=== PATIENT | female | born 1965 | race Caucasian/White ===

== ENCOUNTER 2020-07-23 10:57 | Outpatient (REF) | payer OTHER, SELFPAY ==
[2020-07-23 11:32] LABS: COVID-19 Test Negative (Negative)
== END 2020-07-23 10:58 | disposition home or self-care (01) ==
LOC: HO.LAB 10:57
PROVIDERS: Visit Provider Internal Medicine
DX: Z20.828 Contact with and (suspected) exposure to other viral communicable diseases (principal)
CPT/HCPCS: 87635

== ENCOUNTER 2020-12-31 08:32 | Outpatient (REF) | payer OTHER, SELFPAY ==
--- NOTE | 2020-12-31 16:09 | MHC.AU.ANR ---
Adult Audiological Evaluation Date of Visit: 12/31/20 Reason for Appointment: Audiological evaluation due to concern for decreased hearing. Mr. Laguna notes particular difficulties hearing and understanding speech in the presence of background noise. He denies tinnitus and dizziness. Does patient feel they have a hearing loss?: Yes If Yes, Which Ear?: Both Ears When Was Hearing Difficulty First Noticed?: 10 years ago Has hearing been tested previously?: Yes Previous Hearing Test Results: Reports having been previously tested at the [facility], and notes that he was diagnosed with a hearing loss at that time. Results not available to be reviewed. Hearing Handicap Inventory: HHIE SCORE: 28 Based on HHIE score, patient has: Severe perceived hearing handicap History: History: Yes Branch: [employer] Years in : 5 Years Medical History: Medical History: Tobacco Use Medication List: Lipitor 20mg po daily Otoscopy: Right Ear: Unremarkable Left Ear: Unremarkable Tympanometry: Tympanometry performed due to: To assess integrity of the middle ear system Right Ear: Normal Middle Ear System (Type A) Left Ear: Normal Middle Ear System (Type A) Hearing Evaluation: Transducer(s) Used: Insert Earphones, Bone Conduction Method: Conventional Audiometry Stimuli Used: Pure Tones Right Ear: Description of Hearing: Normal hearing from 250-1500 Hz, sloping to a mild to moderately severe sensorineural hearing loss from 0781-5520 Hz. Left Ear: Description of Hearing: Normal hearing from 250-500 Hz, sloping to a mild to moderately severe sensorineural hearing loss from 4816-3697 Hz. Hearing in the left ear is 30 dBHL worse than the right ear at 1500 Hz, and 10 dBHL worse at 1000 and 2000 Hz. Speech Recognition Threshold (SRT): Method Used: Monitored Live Voice Stimuli Used: Spondee Words Right Ear: 20 dBHL Left Ear: 20 dBHL Word Discrimination: Method: Recorded Lists Word Lists Used: NU-6 Right Ear: 88% at 60 dBHL, 96% at 70 dBHL Left Ear: 76% at 70 dBHL, 92% at 70 dBHL Recommendations: Audiological re-evaluation in one year. Trial with amplification is recommended. Referral to Ear, Nose, and Throat is recommended due to asymmetry. Set Mr. Laguna up with a pair of demo Phonak Audeo P hearing aids and scheduled him to return in two weeks for a hearing aid evaluation. Diagnosis: Primary Diagnosis: H90.3 Bilateral Sensorineural Hearing Loss Services Performed: Services Performed: Comprehensive Audiological Evaluation (CPT 13198) Tympanometry (CPT 28185) Signature: Provider: Bhupendra Maldonado, CCC-A
== END 2020-12-31 08:33 | disposition home or self-care (01) ==
LOC: HO.SH 08:32
PROVIDERS: Visit Provider Internal Medicine
DX: H90.3 Sensorineural hearing loss, bilateral (principal)
CPT/HCPCS: 92557; 92567

== ENCOUNTER 2021-01-15 14:58 | Outpatient (REF) | payer SELFPAY ==
--- NOTE | 2021-01-15 16:44 | MHC.AU.HAS ---
Hearing Aid Evaluation Date of Visit: 01/15/21 Historical Information: Description of Hearing: Mild to moderately severe sensorineural hearing loss, worse in the left ear Summary: Patient has been using Phonak Audeo P trial aids for several weeks. He states that he's noticed an improvement in his hearing and finds them beneficial. He has been getting used to them and notices how quiet it is when he doesn't wear them. He is interested in purchasing a similar pair. Hearing Aid Prescription: Based on the individual?s shared listening needs, communication environments, dexterity, desire for connectivity, and personal preferences, the following prescription for amplification has been made: Right ear: Manager Rehab: Phonak Model: Audeo P70-13T Battery Size: 13 Color: P5- Champagne Corporate Events Director: Size 1 M Type of Dome: Medium open Left ear: Left ear prescription to be same as Right Hearing Aid above: Manager Rehab: Phonak Model: Audeo P70-13T Battery Size: 13 Color: P5- Champagne Corporate Events Director: 1 M Type of Dome: Medium open Action Taken/Action Needed: Hearing Fitting to be scheduled when materials arrive. Called Phonak and ordered aids today. Primary Diagnosis: H90.3 Bilateral Sensorineural Hearing Loss Signature: Provider: Bhupendra Maldonado, CCC-A
== END 2021-01-15 14:59 | disposition home or self-care (01) ==
LOC: HO.HAP 14:58
PROVIDERS: Visit Provider Internal Medicine
DX: Z46.1 Encounter for fitting and adjustment of hearing aid (principal); H90.3 Sensorineural hearing loss, bilateral
CPT/HCPCS: 92591

== ENCOUNTER 2021-01-28 13:57 | Outpatient (REF) | payer OTHER, SELFPAY | END 2021-01-28 13:58 | disposition home or self-care (01) | LOC: HO.HAP 13:57 | PROVIDERS: Visit Provider Internal Medicine | DX: H90.3 Sensorineural hearing loss, bilateral (principal) | CPT/HCPCS: V5261 ==

== ENCOUNTER 2022-08-16 14:08 | Outpatient (REF) | payer OTHER, SELFPAY ==
[2022-08-16 15:01] LABS: Influenza A PCR POSITIVE (Negative); Influenza B PCR NEGATIVE (Negative); Resp Syncy Virus RNA Qual PCR NEGATIVE (Negative); SARS COV2 PCR INHOUSE NEGATIVE (Negative)
== END 2022-08-16 14:09 | disposition home or self-care (01) ==
LOC: HO.LNP 14:08
PROVIDERS: Visit Provider Physician Assistant
DX: Z20.822 Contact with and (suspected) exposure to COVID-19 (principal); R09.89 Other specified symptoms and signs involving the circulatory and respiratory systems
CPT/HCPCS: 0241U

== ENCOUNTER 2022-10-03 09:19 | Outpatient (REF) | payer OTHER, SELFPAY ==
--- NOTE | ~2022-10-03 | XR_ITS ---
EXAMINATION: XR CHEST CLINICAL INFORMATION: Pneumonia COMPARISON: None TECHNIQUE: 2 views of the chest were obtained. FINDINGS: Lungs are well-inflated and clear. Trachea is midline in position. No interstitial disease, consolidation or mass. No pleural effusion or pneumothorax. Cardiac silhouette and pulmonary vessels are normal in size. The mediastinum and asaf have normal contour. The visualized bones, and upper abdomen, are unremarkable. XR/XR chest 2V IMPRESSION: No evidence of pneumonia. No acute cardiopulmonary abnormality.
== END 2022-10-03 09:20 | disposition home or self-care (01) ==
LOC: HO.HMGCX 09:19
PROVIDERS: PCP Physician Assistant Medical; Visit Provider Internal Medicine
DX: J18.9 Pneumonia, unspecified organism (principal)
CPT/HCPCS: 71046

== ENCOUNTER → 2023-05-10 10:34 | Outpatient (BNVA) | payer OTHER, SELFPAY | PROVIDERS: PCP Physician Assistant Medical; Visit Provider Physician Assistant Medical | DX: Z13.89 Encounter for screening for other disorder (principal) | CPT/HCPCS: 99203 ==

== ENCOUNTER 2023-06-14 08:26 | Outpatient (AMB) | payer OTHER, SELFPAY ==
--- NOTE | 2023-06-14 08:53 | MHC.OFFWIV ---
Intake Vital Signs 06/14/23 08:56 Height 5 ft 8 in Weight 229 lb BMI 34.8 BP 120/70 Blood Pressure Location Lt brachial Position Sitting Pulse 88 Pulse Source Pulse Oximeter Temp 98.0 F Temp Source Temporal Artery Scan Pulse Oximetry (%) 94 Oxygen Delivery Method Room Air Intake Visit Reasons: EP, cough, congestion ([phone]) Intake Note: Patient here for sinus congestion, runny nose, sore throat on and off, cough and headaches which has been present for about 2-3 days. Patient Tobacco Use Status: Former Tobacco user Allergies No Known Allergies Allergy (Verified 06/14/23 08:54) Do you need a note to return to daycare/school/sports/work: Yes HPI EP, cough, congestion ([phone]) HPI Details 58-year-old male presents today for sick visit. He just returned from a trip to [facility], where he was on close quarters on a bus with a person with a persistent cough and other viral symptoms. He developed similar symptoms 2-3 days ago and returned home yesterday. Reports cough, nasal congestion, body aches, headaches. Has not taken his temp however feels hot/cold. Denies GI symptoms, shortness of breath, or chest pain. [facility] Social History Patient Tobacco Use Status: Former Tobacco user Review of Systems Const All systems reviewed & are unremarkable except as noted in HPI and below Physical Exam Vital Signs: Last Vital Signs Temp 98.0 F 06/14/23 08:56 Pulse 88 06/14/23 08:56 BP 120/70 06/14/23 08:56 Pulse Ox 94 06/14/23 08:56 Oxygen Delivery Method Room Air 06/14/23 08:56 BMI result Body Mass Index 34.8 Const General: cooperative and no acute distress HEENT Head: Yes normal to inspection Ears: hearing grossly normal bilaterally Neck Neck: Yes no lymphadenopathy Resp Effort & Inspection: normal respiratory effort and Actively coughing Quality: dry Auscultation: clear to auscultation bilaterally Cardio Jugular venous distension: no JVD Palpation: normal PMI Rate: regular rate Rhythm: regular rhythm Skin General skin exam: no rashes or lesions noted Extrem General: Yes capillary refill normal and Yes no clubbing, cyanosis or edema Psych Appearance: grossly normal Mental Status: mental status grossly normal Speech and movement: Normal speech and movement present Assessment & Plan Assessment & Plan (1) Cough: Code(s): R05.9 - Cough, unspecified Qualifiers: Cough type: acute Qualified Code(s): R05.1 - Acute cough Plan: Symptoms likely consistent with viral illness, particularly given exposure during recent trip. Viral swab obtained for COVID/flu/RSV. Patient aware he will be notified with results once these are available. 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 I will start him on a short course of PO prednisone for his cough. He has been on this previously without negative side effects. Reviewed indications and use. Otherwise advised rest, hydration, OTC cold/flu products as needed. If he does not improve with treatment, or if symptoms worsen or new symptoms develop, he can certainly return to the clinic for further evaluation. He agrees to plan. (2) Generalized body aches: Code(s): R52 - Pain, unspecified Orders: Orders SARS-CoV2/FLU/RSV Today R05.9 - Cough, unspecified, R52 - Pain, unspecified Medications: New prednisone 20 mg PO BID 4 days 8 tabs 0RF R05.9 - Cough, unspecified, R52 - Pain, unspecified Coding Level of Care Code Est Pt Level 3 (19275) Diagnoses Acute cough R05.1 Cough type: acute Generalized body aches R52
[2023-06-14 08:56] VITALS: BP 120/70; PULSE 88; TEMP 36.7; O2SAT 94; BMI 34.8
== END 2023-06-14 09:25 | disposition home or self-care (01) ==
PROVIDERS: PCP Physician Assistant Medical; Visit Provider Nurse Practitioner Family
DX: R05.1 Acute cough (principal); R52 Pain, unspecified
CPT/HCPCS: 99213

== ENCOUNTER 2023-06-14 09:07 | Outpatient (REF) | payer OTHER, SELFPAY ==
[2023-06-14 14:40] LABS: Influenza A PCR NEGATIVE (Negative); Influenza B PCR NEGATIVE (Negative); Resp Syncy Virus RNA Qual PCR NEGATIVE (Negative); SARS COV2 PCR INHOUSE NEGATIVE (Negative)
== END 2023-06-14 09:08 | disposition home or self-care (01) ==
LOC: HO.LAB 09:07
PROVIDERS: Visit Provider Nurse Practitioner Family
DX: Z20.822 Contact with and (suspected) exposure to COVID-19 (principal); R05.9 Cough, unspecified; R52 Pain, unspecified
CPT/HCPCS: 0241U

== ENCOUNTER 2023-08-10 15:46 | Outpatient (REF) | payer OTHER, SELFPAY ==
--- NOTE | 2023-08-11 10:21 | MHC.AU.HA3 ---
Hearing Instrument Follow-Up- Binaural Date of Visit: 08/11/2023 Data Analytics Specialist Used: Right Ear: Make, Model, Color, Serial Number: [id number] Inverter And Clipper Repair Warranty: 04/18/2024 Inverter And Clipper Loss and Damage Warranty: 04/18/2024 [facility] Service Plan: Battery Size: 13 Contract Negotiation Manager/Slim Tube: Size 1 M Earmold/Dome/CShell/SlimTip: Type of Wax Guard: Cerushield Dispensed By: Date of Fitting: Left Ear: Make, Model, Color, Serial Number: [id number] Inverter And Clipper Repair Warranty: 04/18/2024 Inverter And Clipper Loss and Damage Warranty: 04/18/2024 [facility] Service Plan: Battery Size: 13 Contract Negotiation Manager/Slim Tube: 1 M Earmold/Dome/CShell/SlimTip: Type of Wax Guard: Cerushield Dispensed By: Date of Fitting: Follow-Up Summary: Right hearing aid ([id number]) dropped off, aid , could not repair. Spoke with Reggie on phone, OK to send out and requested loaner. Programmed and left with front desk team member for patient pickup. Recommendations: Return for pickup of repaired aid once received in clinic. Signature: Provider: Lillian Galvez, [facility]
== END 2023-08-10 15:47 | disposition home or self-care (01) ==
LOC: HO.HAP 15:46
PROVIDERS: Visit Provider Physician Assistant Medical
DX: Z13.89 Encounter for screening for other disorder (principal)

== ENCOUNTER 2023-08-30 14:24 | Outpatient (REF) | payer SELFPAY | END 2023-08-30 14:25 | disposition home or self-care (01) | LOC: HO.HAP 14:24 | PROVIDERS: Visit Provider Physician Assistant Medical | DX: Z13.89 Encounter for screening for other disorder (principal) ==

== ENCOUNTER 2023-09-21 10:21 | Outpatient (REF) | payer SELFPAY | END 2023-09-21 10:22 | disposition home or self-care (01) | LOC: HO.HAP 10:21 | PROVIDERS: Visit Provider Physician Assistant Medical | DX: Z13.89 Encounter for screening for other disorder (principal) ==

== ENCOUNTER 2023-10-27 08:26 | Outpatient (REF) | payer OTHER, SELFPAY ==
--- NOTE | 2023-10-27 09:44 | MHC.AU.HA3 ---
Hearing Instrument Follow-Up- Binaural Date of Visit: 10/27/23 Right Ear: Daren, , Color, Serial Number: Eriberto Osorio [id number] SN: [id number] Color: Rioe Tests Superintendent Repair Warranty: 04/18/2024 Tests Superintendent Loss and Damage Warranty: 04/18/2024 Battery Size: 13 Admissions Recruiter/Slim Tube: 1M Earmold/Dome/CShell/SlimTip:Medium closed dome (no retention tail) Type of Wax Guard: Cerushield Dispensed By: [facility] Date of Fittin01/28/2021 Left Ear: Daren, Model, Color, Serial Number: Eriberto Osorio [id number] SN: [id number] Color: Nga Tests Superintendent Repair Warranty: 04/18/2024 Tests Superintendent Loss and Damage Warranty: 04/18/2024 Battery Size: 13 Admissions Recruiter/Slim Tube: 1M Earmold/Dome/CShell/SlimTip: Medium closed dome (no retention tail) Type of Wax Guard: Cerushield Dispensed By: [facility] Date of Fittin01/28/2021 Follow-Up Summary: Reggie returned for an updated hearing test and hearing aid maintenance. Reggie reported increasing hearing difficulties both at home and at work even with his hearing aids including need for more repetition as well as mishearing parts of conversations, especially in the presence of background noise. Reggie's hearing is stable. However, with current settings, high frequency gain not matching targets likely due to limits of feedback curve. Changed from open dome to closed dome. Reran feedback analyzer. Reprogramming to NAL-NL2 and ran real ear measures. Significant improvement in match to target; however, still slightly underfit in highs due to feedback curve. Also increased noise management settings in [id number] and [id number] programs. Reggie will call if issues with sound quality arise. Recommendations: Hearing instrument follow-up or maintenance as needed. Please contact our clinic with any questions or concerns. Diagnosis Code(s): Primary Diagnosis: H90.3 Bilateral Sensorineural Hearing Loss Signature: Provider: Lillian Collado, [facility]
== END 2023-10-27 08:27 | disposition home or self-care (01) ==
LOC: HO.SH 08:26
PROVIDERS: Visit Provider Physician Assistant
DX: Z01.118 Encounter for examination of ears and hearing with other abnormal findings (principal); H90.3 Sensorineural hearing loss, bilateral
CPT/HCPCS: 92552; 92556

== ENCOUNTER 2023-11-17 09:02 | Outpatient (AMB) | payer OTHER, SELFPAY ==
--- NOTE | 2023-11-17 08:33 | A.OFFVIS_ITS ---
Intake Intake Visit Reasons: LDCT SD Allergies No Known Allergies Allergy (Verified 06/14/23 08:54) HPI HPI Comments History of Present Illness Details Reggie is a pleasant 58 year old male, former smoker with a 42 PYH, quit 2013 Patient started smoking at age 14 for 34 years at 1-1.5 ppd. Denies marijuana use. Denies exposure to chemicals or substances like asbestos. Admits second hand smoke exposure. Denies known family history of lung cancer. Denies personal history of cancers. Denies chest CT in last year. Reports recent travel outside the to [facility]. Admits testing positive for COVID. Admits receiving COVID Vaccine x 2 Denies fever, chills, chest pain, new cough, hemoptysis or unintentional weight loss. Lung Cancer Screening Questionnaire reviewed with patient by provider. Shared Decision Making Completed. Discussed in detail with patient, the risk versus benefit of LDCT screening. Patient in agreement of proceeding with scan. [facility] Social History (Updated 11/17/23 @ 09:33 by Shruthi Wade NP) Patient Tobacco Use Status: Former Tobacco user Quit Date: 2013 Assessment & Plan Assessment & Plan (1) Personal history of tobacco use: Code(s): Z87.891 - Personal history of nicotine dependence Plan Shared decision-making visit completed today in office. This patient meets criteria for LDCT for lung cancer screening purposes and is asymptomatic. Patient has been scheduled for a low dose chest CT for screening purposes at [facility]. We discussed how the results will be obtained depending on CT findings. RADS 1 and RADS 2 will receive a letter with results and will follow up for annual LDCT. Patient informed they will be contacted at later date to schedule upcoming LDCT scan. RADS 3 and RADS 4 will receive a telephone call, or an office visit after reviewing case at our Lung Cancer Conference to determine when the next LDCT will be scheduled or further interventions that may be needed. Discussed importance of screening program and compliance with yearly LDCT scan as scheduled. Risks, benefits, and alternatives were discussed in detail and patient agrees to proceed. Risks discussed include but are not limited to: radiation exposure and possibility of additional intervention for benign disease. Benefits include detection of lung cancer at an early stage. A copy of today's visit and LDCT results will be sent to patient's PCP. Incidental findings on LDCT are PCP's responsibility. If there are incidental findings, our office will ensure that PCP office is aware of these findings. All questions were answered and patient is in agreement of plan. Coding Level of Care Code Lung Cancer Screening G0296 Diagnoses Personal history of tobacco use Z87.891
== END 2023-11-17 09:26 | disposition home or self-care (01) ==
PROVIDERS: PCP Physician Assistant Medical; Visit Provider Nurse Practitioner Family
DX: Z87.891 Personal history of nicotine dependence (principal)
CPT/HCPCS: G0296

== ENCOUNTER 2023-11-17 09:21 | Outpatient (REF) | payer OTHER, SELFPAY ==
--- NOTE | ~2023-11-17 | CT_ITS ---
EXAMINATION: CT CHEST SCREENING CLINICAL INFORMATION: Personal history of nicotine dependence. Quit smoking 7 years ago. [id number] history smoking 1 pack per day. COMPARISON: None available. TECHNIQUE: Multidetector volumetric CT imaging of the chest is performed without contrast using low-dose technique. Additional 2D coronal and sagittal reformatted images and axial 3D maximum intensity projection (MIP) images are generated on the CT workstation. This CT examination was performed using dose optimization techniques as appropriate, variously including the following: *Automated exposure control *Adjustment of mA and/or kV according to patient size (this includes techniques or standardized protocols for targeted exams where dose is matched to indication/reason for exam; i.e. extremities or head) *Use of iterative reconstruction technique DLP: 69 mGy-cm FINDINGS: LUNGS: A few tiny micronodules are seen, none larger than 2 mm. For example, there is a 2 mm left upper lobe nodule (5:98), 2 adjacent perifissural nodules in the right upper and right middle lobe the largest measuring 2 mm (5:253 and 254), and a 2 mm left lower lobe nodule (5:330). A small area of inspissated mucus is seen in a left upper lobe bronchus (5:207). No evidence of a worrisome mass to suggest malignancy. The lungs are otherwise clear with no evidence of inflammation . MEDIASTINUM: The mediastinum is unremarkable. CORONARY ARTERY CALCIFICATION: None visualized on this study. PLEURA: There is no pleural effusion. No pleural mass or thickening. AXILLA: No lymphadenopathy. UPPER ABDOMEN: Gallstones are present without evidence of cholecystitis. OSSEOUS STRUCTURES: Unremarkable. CT/CT lung screening IMPRESSION: Negative chest CT with no evidence to suggest malignancy. Some tiny nonconcerning pulmonary micronodules are present. Incidentally noted cholelithiasis. ASSESSMENT: Lung-RADS category 2: Benign. RECOMMENDATION: Routine annual low-dose CT screening in 12 months.
== END 2023-11-17 09:22 | disposition home or self-care (01) ==
LOC: HO.CT 09:21
PROVIDERS: PCP Physician Assistant Medical; Visit Provider Nurse Practitioner Family
DX: Z12.2 Encounter for screening for malignant neoplasm of respiratory organs (principal); Z87.891 Personal history of nicotine dependence
CPT/HCPCS: 71271; G0296

== ENCOUNTER 2024-09-05 19:52 | Emergency (ER) | payer OTHER, SELFPAY ==
--- NOTE | ~2024-09-05 | XR_ITS ---
EXAMINATION: XR LUMBOSACRAL SPINE CLINICAL INFORMATION: fall COMPARISON: None available. TECHNIQUE: Three views of the lumbosacral spine. FINDINGS: There are 5 nonrib-bearing lumbar vertebrae. Spinal alignment is anatomic in the sagittal projection. The vertebral bodies demonstrate preserved stature. Intervertebral disc space heights are fairly well preserved. There is no acute fracture. The paraspinal soft tissue is normal in appearance. The sacroiliac joints are intact. XR/XR lumbar spine 2-3V IMPRESSION: No acute osseous lumbar spine abnormality. Electronically signed by: De Thrasher DO 09/05/2024 10:11 PM [facility]
--- NOTE | ~2024-09-05 | XR_ITS ---
EXAMINATION: XR THORACIC SPINE CLINICAL INFORMATION: fall COMPARISON: None available. TECHNIQUE: 3 views of the thoracic spine were obtained. FINDINGS: Thoracic spinal alignment is anatomic in the sagittal projection. Vertebral body heights are preserved. Intervertebral disc space heights are preserved. There is no acute fracture. Paraspinal soft tissue is normal in appearance. Visualized lungs are clear. XR/XR thoracic spine 2V IMPRESSION: No acute osseous thoracic spine abnormality. Electronically signed by: De Thrasher DO 09/05/2024 10:09 PM [facility]
[2024-09-05 20:15] VITALS: BP 115/72; PULSE 80; RESP 20; TEMP 36.7; O2SAT 99; BMI 26.5
[2024-09-05] MEDS: Acetaminophen 325 MG TABLET 975 MG PO (20:30)
--- NOTE | 2024-09-05 21:06 | ED.GENADULT ---
HPI - General Adult General Chief complaint: Back Pain/Injury Stated complaint: Work Injury, Fall during pt restraint Time Seen by Provider: 09/05/24 20:06 Source: patient, RN notes reviewed and old records reviewed Mode of arrival: ambulatory Limitations: no limitations History of Present Illness ED Provider: Nicolás BRITT narrative: 59-year-old male presents for evaluation of back pain. 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 He reports that he fell to the ground with the patient and other staff members He reports ?there was a lot of twisting and turning. ? He was able to finish his shift but complains of tightness to his upper back across the shoulder blades and down his spine into his lower back He denies hitting his head or losing consciousness Denies any numbness, tingling, weakness Related Data Home Medications ?Medication ?Instructions ?Recorded ?Confirmed atorvastatin 20 mg tablet 20 mg PO DAILY 08/16/22 omeprazole 20 mg capsule,delayed 20 mg PO DAILY 06/14/23 release Previous Rx's ?Medication ?Instructions ?Recorded albuterol sulfate 90 mcg/actuation 1 inh inhalation QID PRN shortness 10/03/22 aerosol inhaler (Ventolin HFA) of breath or wheezing #8.5 grams azithromycin 250 mg tablet See Rx Instructions PO .COMPLEX #6 10/03/22 tabs prednisone 20 mg tablet 60 mg (3 x 20 mg) PO DAILY #9 tabs 10/03/22 prednisone 20 mg tablet 20 mg PO BID 4 days #8 tabs 06/14/23 cyclobenzaprine 10 mg tablet 10 mg PO TID PRN muscle spasm #15 09/05/24 tabs Allergies Allergy/AdvReac Type Severity Reaction Status Date / Time No Known Allergies Allergy Verified 09/05/24 20:26 Review of Systems Constitutional: Constitutional: Denies body ache(s), Denies chills, Denies fever(s) and Denies headache(s) Eyes: Eyes: Denies blurry vision ENT: Denies vertigo, Denies dizziness and Denies headache(s) Cardiovascular: Cardiovascular: Denies chest pain and Denies dyspnea Respiratory: Respiratory: Denies cough and Denies dyspnea Gastrointestinal: Gastrointestinal: Denies abdominal pain, Denies nausea and Denies vomiting Musculoskeletal: Musculoskeletal: Reports back pain Integumentary/Breasts: Skin/Breast: Denies rash Neurologic: Denies vertigo, Denies dizziness and Denies headache(s) Endocrine: Endocrine: Denies other PMFSH Social History Social History (Updated 11/17/23 @ 09:33 by Shruthi Wade NP) Patient Tobacco Use Status: Former Tobacco user Advance Directives: No Advance Directives Information Provided: Yes Do you have a plan to hurt others: No Plan Physical Exam ED Vital Signs: Vital Signs - 24 hr 09/05/24 20:15 Temperature 98.0 F Pulse Rate 80 Respiratory Rate 20 Blood Pressure 115/72 Pulse Oximetry 99 Oxygen Delivery Method Room Air BMI result Body Mass Index 26.5 Const General: healthy appearing, comfortable, no acute distress, alert and awake Nutritional Appearance: well nourished Orientation/consciousness: patient oriented x3 HENMT Head: Yes normocephalic and Yes atraumatic Eyes Eyelids: Yes eyelids normal Conjunctivae: conjunctivae normal Sclerae: sclerae normal Corneas: corneas normal Pupils: Equal, round and reactive pupils present EOM: EOMs intact bilaterally Neck Neck: Yes full ROM Resp Effort & Inspection: normal respiratory effort, able to speak in complete sentences and not labored Cardio Rate: regular rate Rhythm: regular rhythm Back/Spine/Pelvis Other: Patient has tenderness to the bilateral trapezius muscle groups as well as thoracic spine and paraspinous region. There are no palpable step-offs or deformities. Negative straight leg raise bilaterally Skin General skin exam: elasticity normal Neuro General: patient oriented x3 Cranial nerves: Yes Equal, round and reactive pupils present and Yes Bilaterally intact EOM present Cognition (Neuro): normal cognition Extrem Other: Moving all extremities well without any obvious deformities Medications Administered Discontinued Medications Generic Name Dose Route Start Last Admin Trade Name Freq PRN Reason Stop Dose Admin Acetaminophen 975 mg 09/05/24 20:18 09/05/24 20:30 Acetaminophen 325 Mg Tablet PO 09/05/24 20:19 975 mg ONCE ONE Administration Medical Decision Making Medical Decision Making [facility] Narrative: 59-year-old male presents for evaluation of back pain after being involved in a restraint and falling to the ground today that he has no other injuries, denies hitting his head or losing consciousness. Plan for x-ray of the thoracic and lumbar spine. He was no neuro deficits. Differential Diagnosis Differential Diagnoses: The differential diagnosis associated with the presentation includes Cervical strain Compression fracture Burst fracture Radiculopathy Independent Interpretation I performed an independent interpretation of an: Plain X-Ray (No obvious compression fracture thoracic or lumbar spine) Discharge Plan Discharge Clinical Impression: Back strain Patient Disposition: Home, Self-Care Instructions: Back Pain (ED) Additional Instructions: I do not see any compression fractures on your x-ray. Your symptoms are most likely muscle spasms Use ibuprofen/Tylenol for pain. You may use cyclobenzaprine as needed for muscle spasms. This may make you drowsy, do not drink alcohol or drive taking it Follow-up with your primary doctor, return for new or worsening symptoms Prescriptions: New cyclobenzaprine 10 mg tablet 10 mg PO TID PRN (Reason: muscle spasm) Qty: 15 0RF No Action atorvastatin 20 mg tablet 20 mg PO DAILY omeprazole 20 mg capsule,delayed release(DR/EC) 20 mg PO DAILY prednisone 20 mg tablet 20 mg PO BID 4 Days Qty: 8 0RF azithromycin 250 mg tablet See Rx Instructions PO .COMPLEX Qty: 6 0RF Rx Instructions: take 500 mg today (day 1), then 250 mg for 4 days (days 2-5) PO prednisone 20 mg tablet 60 mg PO DAILY Qty: 9 0RF albuterol sulfate [Ventolin HFA] 90 mcg/actuation HFA aerosol inhaler 1 inh inhalation QID PRN (Reason: shortness of breath or wheezing) Qty: 8.5 1RF Print Language: Cambodian
[2024-09-05 21:21] VITALS: BP 115/72; PULSE 80; RESP 20; TEMP 36.7; O2SAT 99
== END 2024-09-05 21:24 | disposition home or self-care (01) ==
PROVIDERS: Emergency Provider Emergency Medicine; PCP Physician Assistant Medical
DX: S39.012A Strain of muscle, fascia and tendon of lower back, initial encounter (principal); W03.XXXA Other fall on same level due to collision with another person, initial encounter; Y93.F9 Activity, other caregiving; Y92.239 Unspecified place in hospital as the place of occurrence of the external cause; Y99.0 Civilian activity done for income or pay
CPT/HCPCS: 72070; 72100; 99283; 99284